=== PATIENT | female | born 1975 | race Caucasian/White ===

== ENCOUNTER 2018-01-20 14:11 | Emergency (ER) | payer MEDICAID ==
[~2018-01-20] VITALS: Ht 162.6 cm; Wt 99.8 kg
[2018-01-20 14:18] VITALS: BP 120/78
[2018-01-20] MEDS ORDERED: METOCLOPRAMIDE 10 MG TAB PO ONE (15:00)
[2018-01-20] MEDS ORDERED: FAMOTIDINE 20 MG TAB PO ONE (15:00)
[2018-01-20 17:58] VITALS: BP 134/86
== END 2018-01-20 17:58 | disposition home or self-care (01) ==
LOC: MED 14:11
DX: F45.8 Other somatoform disorders (principal); K21.9 Gastro-esophageal reflux disease without esophagitis; E11.9 Type 2 diabetes mellitus without complications
CPT/HCPCS: 71250; 81002; 81025; 99284; J8597

== ENCOUNTER 2018-05-17 19:35 | Emergency (ER) | payer MEDICAID ==
[~2018-05-17] VITALS: Ht 160 cm; Wt 99.8 kg
[2018-05-17 19:38] VITALS: BP 129/81
--- NOTE | 2018-05-17 19:44 | NUR ---
TO BED # 11 AMBULATORY, REPORT GIVEN TO ERASMO SPENCER.
--- NOTE | 2018-05-17 19:45 | NUR ---
43/F CAME IN W C/O DIZZINESS AND NAUSEA X 3 DAYS. PT ALSO REPORTS BLURRY VISION. PT REPOTS SHE HAS NOT BEEN TAKING HER BP AND DM MEDS X 3 DAYS. DENIES V/D; SKIN IS PINK/WARM/DRY; AAOX4 WITH EVEN AND STEADY GAIT; LUNGS CLEAR BL; HR EVEN AND REGULAR; PT DENIES ANY FEVER, CP, SOB, OR COUGH AT THIS TIME; PATIENT STATES PAIN OF 0/10 AT THIS TIME; VSS; PATIENT POSITIONED FOR COMFORT; HOB ELEVATED; BEDRAILS UP X2; BED DOWN. ER MD MADE AWARE OF PT STATUS.
[2018-05-17] MEDS ORDERED: ONDANSETRON 4 MG ODT PO ONE (20:10)
--- NOTE | 2018-05-17 20:24 | NUR ---
Dr. Ruvalcaba evaluating patient at bedside.
--- NOTE | 2018-05-17 20:35 | NUR ---
DPatient discharged with v/s stable. Written and verbal after care instructions given and explained. Patient alert, oriented and verbalized understanding of instructions. Ambulatory with steady gait. All questions addressed prior to discharge. ID band removed. Patient advised to follow up with PMD. Rx of ZOFRAN given. Patient educated on indication of medication including possible reaction and side effects. Opportunity to ask questions provided and answered.
[2018-05-17 20:41] VITALS: BP 142/86
== END 2018-05-17 20:35 | disposition home or self-care (01) ==
LOC: MED 19:35
DX: R11.0 Nausea (principal); R06.02 Shortness of breath; E11.9 Type 2 diabetes mellitus without complications; I10 Essential (primary) hypertension
CPT/HCPCS: 81002; 81025; 82948; 99283; S0119

== ENCOUNTER 2018-11-12 10:36 | Emergency (ER) | payer MEDICAID ==
[~2018-11-12] VITALS: Ht 162.6 cm; Wt 99.8 kg
[2018-11-12 10:40] VITALS: BP 154/78
--- NOTE | 2018-11-12 10:48 | NUR ---
PT. BIB SELF C/O HEADACHE, DIZZINESS SINCE LAST NIGHT, -V/D, PT FEELS CONSITIPATED. C/O NAUSEA. PERRLA BRISK 3MM BILAT. PT. STATES " THEY CHANGED MY DIABETES MEDICATION AND I FEEL DIZZY AND A LITTLE SWEATY AT TIMES, I DONT CHECK MY BLOOD SUGAR THOUGH". DENIES ANY CHEST PAIN, DENIES ANY SOB. RR EVEN AND UNLABORED.DENIES ANY FALL OR INJURY. FACIAL SYMMETRY NOTED. BILAT HAND MARKET RISK ANALYST 3+. WILL CONTINUE TO MONITOR. ER MD MADE AWARE. SAFETY PRECAUTIONS IN PLACE. VSS.
[2018-11-12] MEDS ORDERED: IBUPROFEN 600 MG TAB PO ONE (11:15)
[2018-11-12] MEDS ORDERED: ONDANSETRON 4 MG ODT PO ONE (11:15)
[2018-11-12] MEDS ORDERED: MECLIZINE 25 MG TAB PO ONE (11:15)
--- NOTE | 2018-11-12 11:18 | NUR ---
Patient being evaluated by physician at bedside.
--- NOTE | 2018-11-12 12:01 | NUR ---
PT. RESTING COMFORTABLY IN BED, RR EVEN AND UNLABORED. VSS. WILL CONTINUE TO MONITOR.
[2018-11-12 12:18] VITALS: BP 150/76
--- NOTE | 2018-11-12 12:18 | NUR ---
Patient discharged with v/s stable. Written and verbal after care instructions given and explained. Patient alert, oriented and verbalized understanding of instructions. Ambulatory with steady gait. All questions addressed prior to discharge. ID band removed. Patient advised to follow up with PMD. Rx of ZOFRAN ODT 4MG, MECLIZINE 25MG, given. Patient educated on indication of medication including possible reaction and side effects. Opportunity to ask questions provided and answered.
== END 2018-11-12 12:18 | disposition home or self-care (01) ==
LOC: MED 10:36
DX: R42 Dizziness and giddiness (principal); R51 Headache; E11.9 Type 2 diabetes mellitus without complications; I10 Essential (primary) hypertension; E78.5 Hyperlipidemia, unspecified
CPT/HCPCS: 81002; 81025; 82948; 99284; J8597; Q0162

== ENCOUNTER 2021-04-28 19:11 | Emergency (ER) | payer MEDICAID, OTHER ==
[~2021-04-28] VITALS: Ht 157.5 cm; Wt 111.1 kg
[2021-04-28 19:14] VITALS: BP 172/90
--- NOTE | 2021-04-28 19:14 | NUR ---
TO BED AMBULATORY
--- NOTE | 2021-04-28 19:37 | NUR ---
PT BIB SELF FOR C/O BILATERAL ANKLE PAIN X 1 MONTH, WITH INCREASING PAIN THE LAST FEW DAYS. PT DENIES FALL OR INJURY. PT REPORTS INCREASE IN PAIN WHEN AMBULATING. PAIN IS 10/10, NON RADIATING. CAP REFILL < 3 SECONDS. CMS INTACT. DENIES NUMBNESS OR TINGLING. SKIN IS WARM, DRY AND INTACT. PT DENIES TAKING OTC PAIN MEDICATION AT HOME. MED HX:DM, HTN ALLERGIES: NKA
--- NOTE | 2021-04-28 20:02 | NUR ---
ERMD AT BEDSIDE.
--- NOTE | 2021-04-28 21:00 | NUR ---
ULTRASOUND AT BEDSIDE.
[2021-04-28] MEDS ORDERED: ACETAMINOPHEN EXTRA STRENGTH 500 MG TAB PO ONE (22:40)
[2021-04-28] MEDS ORDERED: IBUPROFEN 600 MG TAB PO ONE (22:40)
[2021-04-28] MEDS ORDERED: IBUP-2213 PO (22:44)
[2021-04-28] MEDS ORDERED: ACET-1182 PO (22:44)
[2021-04-28 22:50] VITALS: BP 120/71
--- NOTE | 2021-04-28 22:50 | NUR ---
Patient discharged with v/s stable. Written and verbal after care instructions given and explained. Patient alert, oriented and verbalized understanding of instructions. Ambulatory with steady gait. All questions addressed prior to discharge. ID band removed. Patient advised to follow up with PMD. Rx of TYLENOL AND IBUPROFEN given. Patient educated on indication of medication including possible reaction and side effects. Opportunity to ask questions provided and answered.
== END 2021-04-28 22:50 | disposition home or self-care (01) ==
LOC: MED 19:11
DX: I87.8 Other specified disorders of veins (principal); M79.89 Other specified soft tissue disorders; E11.9 Type 2 diabetes mellitus without complications; I10 Essential (primary) hypertension; E78.5 Hyperlipidemia, unspecified
CPT/HCPCS: 73610; 93971; 99284

== ENCOUNTER 2021-11-05 15:36 | Emergency (ER) | payer OTHER ==
[~2021-11-05] VITALS: Ht 157.5 cm; Wt 108.9 kg
[~2021-11-05 15:36] MED LIST: ACET-1182 PO; IBUP-2213 PO
[2021-11-05 16:55] VITALS: BP 97/52
[2021-11-05] MEDS ORDERED: CETI1TAB5 PO (17:54)
[2021-11-05] MEDS ORDERED: NAPR-54 PO (17:54)
[2021-11-05] MEDS ORDERED: PROM118S5 PO (17:54)
[2021-11-05 19:30] VITALS: BP 97/52
--- NOTE | 2021-11-05 19:30 | NUR ---
novel swab done. handed to peyton barrow to walk to lab
--- NOTE | 2021-11-05 19:31 | NUR ---
Patient discharged with v/s stable. Written and verbal after care instructions given and explained. Patient alert, oriented and verbalized understanding of instructions. Ambulatory with steady gait. All questions addressed prior to discharge. ID band removed. Patient advised to follow up with PMD. Rx of CETIRIZINE, NAPROXEN, PROMETHAZINE given. Patient educated on indication of medication including possible reaction and side effects. Opportunity to ask questions provided and answered.
== END 2021-11-05 19:31 | disposition home or self-care (01) ==
LOC: MED 15:36
DX: R05.9 Cough, unspecified (principal); Z20.822 Contact with and (suspected) exposure to COVID-19; R09.89 Other specified symptoms and signs involving the circulatory and respiratory systems; R51.9 Headache, unspecified; E11.9 Type 2 diabetes mellitus without complications; I10 Essential (primary) hypertension; Z79.899 Other long term (current) drug therapy
CPT/HCPCS: 99283; U0003

== ENCOUNTER 2024-07-03 15:00 | Emergency (ER) | payer BC, OTHER ==
[~2024-07-03] VITALS: Ht 154.9 cm; Wt 104.3 kg
[~2024-07-03 15:00] MED LIST changes: +CETI1TAB5 PO; +NAPR-337 PO; +PROM118S5 PO
[2024-07-03 15:10] VITALS: BP 121/77; PULSE 78; RESP 18; TEMP 97.4; O2SAT 98
--- NOTE | 2024-07-03 15:59 | NUR ---
to bed 7.
[2024-07-03 16:00] VITALS: BP 118/77; PULSE 66; RESP 20; TEMP 98; O2SAT 100
[2024-07-03] MEDS ORDERED: IBUP-2213 PO (16:24)
[2024-07-03] MEDS: KETOROLAC 60 MG/2 ML VIAL IM ONE (16:47)
--- NOTE | 2024-07-03 17:18 | NUR ---
Patient discharged with v/s stable. Written and verbal after care instructions given. Patient alert, oriented and verbalized understanding of instructions. Ambulatory with to car. All questions addressed prior to discharge. ID band removed. Patient advised to follow up with PMD. Rx of Ibuprofen given. Opportunity to ask questions provided and answered.
--- NOTE | 2024-07-03 17:20 | NUR ---
Chart checked and completed. The patient's care was reviewed and supervised by YENNY CARRANZA RN.
== END 2024-07-03 17:18 | disposition home or self-care (01) ==
LOC: MED 15:00
DX: M25.571 Pain in right ankle and joints of right foot (principal); E11.9 Type 2 diabetes mellitus without complications; I10 Essential (primary) hypertension; Z79.1 Long term (current) use of non-steroidal anti-inflammatories (NSAID); Z79.899 Other long term (current) drug therapy
CPT/HCPCS: 96372; 99283; J1885